=== PATIENT | male | born 1965 | race Caucasian/White ===

== ENCOUNTER 2019-10-31 21:34 | Emergency (ER) | payer BC ==
[2019-10-31] MEDS: Sodium Chloride 0.9% 1,000 ML IV SCH (22:12)
[2019-10-31] MEDS: Acetaminophen 325 MG Tab PO ONE (22:25)
--- NOTE | 2019-10-31 22:31 | EDM.PDOC ---
ED HPI GENERAL MEDICAL PROBLEM - General Chief Complaint: Neurological Problem Stated Complaint: MEDICAL [facility]IA [facility] Time Seen by Provider: 10/31/19 22:09 Source of Information: Reports: Patient, Family, RN Notes Reviewed History Limitations: Reports: No Limitations - History of Present Illness INITIAL COMMENTS - FREE TEXT/NARRATIVE: 54-year-old gentleman presents emergency department today complaint of sudden onset of headache, describes it as a "firecracker" he became very lightheaded and flushed had a syncopal event no loss of consciousness but a period of confusion for about 15 minutes no visible movement while on the ground no loss of bowel or bladder Upper Head Pain Score (Numeric/FACES): 4 - Related Data Allergies Allergy/AdvReac Type Severity Reaction Status Date / Time morphine Allergy Rash Verified 10/31/19 21:45 Home Meds: Home Meds Lisinopril/Hydrochlorothiazide [Lisinopril-Hctz 10-12.5 mg Tab] 1 tab PO DAILY 10/31/19 [History] Rosuvastatin [Crestor] 5 mg PO BEDTIME 10/31/19 [History] Past Medical History Cardiovascular History: Reports: High Cholesterol, Hypertension Social & Family History - Tobacco Use Smoking Status *Q: Never Smoker - Caffeine Use Caffeine Use: Reports: Coffee - Recreational Drug Use Recreational Drug Use: No ED ROS GENERAL - Review of Systems Review Of Systems: See Below Constitutional: Reports: No Symptoms HEENT: Reports: No Symptoms Respiratory: Reports: No Symptoms Cardiovascular: Reports: No Symptoms GI/Abdominal: Reports: No Symptoms : Reports: No Symptoms Musculoskeletal: Reports: No Symptoms Neurological: Reports: Headache - Physical Exam Exam: See Below Exam Limited By: No Limitations General Appearance: Alert, WD/WN, No Apparent Distress Eye Exam: Bilateral Eye: EOMI, Normal Fundi, Normal Inspection, PERRL Ears: Normal External Exam, Normal Canal, Hearing Grossly Normal, Normal TMs Nose: Normal Inspection, Normal Mucosa, No Blood Throat/Mouth: Normal Inspection, Normal Lips, Normal Teeth, Normal Gums, Normal Oropharynx, Normal Voice, No Airway Compromise Head Exam: Atraumatic, Normocephalic Neck: Normal Inspection, Supple, Non-Tender, Full Range of Motion Respiratory/Chest: No Respiratory Distress, Lungs Clear, Normal Breath Sounds, No Accessory Muscle Use, Chest Non-Tender Cardiovascular: Regular Rate, Rhythm, No Murmur GI/Abdominal: Soft, Non-Tender Neuro Exam (Abbreviated): Alert, Oriented, CN II-XII Intact, Normal Cognition Course - Vital Signs Last Recorded V/S: Last Vital Signs Temp 95.5 F 10/31/19 22:02 Pulse 68 10/31/19 22:02 Resp 13 10/31/19 22:02 BP 98/50 L 10/31/19 22:02 Pulse Ox 96 10/31/19 22:02 - Orders/Labs/Meds Orders: Active Orders 24 hr Category Date Time Status EKG Documentation Completion [RC] ASDIRECTED Care 10/31/19 22:23 Active Sodium Chloride 0.9% [Normal Saline] 1,000 ml Med 10/31/19 22:15 Active IV ASDIRECTED EKG 12 Lead [EK] Urgent Ther 10/31/19 22:23 Ordered Medication Orders Sodium Chloride (Normal Saline) 1,000 mls @ 999 mls/hr IV ASDIRECTED BILL Last Admin: 10/31/19 22:12 Dose: 999 mls/hr Labs: Laboratory Tests 10/31/19 10/31/19 Range/Units 22:34 22:34 WBC 8.2 (4.5-11.0) K/uL RBC 4.92 (4.30-5.90) M/uL Hgb 13.7 (12.0-15.0) g/dL Hct 42.6 (40.0-54.0) % MCV 87 (80-98) fL MCH 28 (27-31) pg MCHC 32 (32-36) % Plt Count 213 (150-400) K/uL Neut % (Auto) 78 H (36-66) % Lymph % (Auto) 14 L (24-44) % [place] % (Auto) 7 H (2-6) % Eos % (Auto) 1 L (2-4) % Baso % (Auto) 0 (0-1) % Sodium 139 L (140-148) mmol/L Potassium 4.4 (3.6-5.2) mmol/L Chloride 101 (100-108) mmol/L Carbon Dioxide 27 (21-32) mmol/L Anion Gap 15.4 H (5.0-14.0) mmol/L BUN 20 H (7-18) mg/dL Creatinine 1.3 (0.8-1.3) mg/dL Est Cr Clr Drug Dosing 76.40 mL/min Estimated GFR (MDRD) 58 L (>60) Glucose 102 (74-106) mg/dL Calcium 9.3 (8.5-10.1) mg/dL Total Bilirubin 0.3 (0.2-1.0) mg/dL AST 33 (15-37) U/L ALT 64 (12-78) U/L Alkaline Phosphatase 51 (46-116) U/L Troponin I < 0.017 (0.000-0.056) ng/mL Total Protein 7.2 (6.4-8.2) g/dL Albumin 3.7 (3.4-5.0) g/dL Globulin 3.5 (2.3-3.5) g/dL Albumin/Globulin Ratio 1.1 L (1.2-2.2) Meds: Medications Generic Name Dose Route Start Last Admin Trade Name Freq PRN Reason Stop Dose Admin Sodium Chloride 1,000 mls @ 999 mls/hr 10/31/19 22:15 10/31/19 22:12 Normal Saline IV 999 mls/hr ASDIRECTED BILL Administration Discontinued Medications Generic Name Dose Route Start Last Admin Trade Name Freq PRN Reason Stop Dose Admin Acetaminophen 650 mg 10/31/19 22:08 10/31/19 22:25 Tylenol PO 10/31/19 22:09 650 mg NOW ONE Administration Departure - Departure Time of Disposition: 23:27 Disposition: Home, Self-Care 01 Condition: Fair Clinical Impression: Near syncope Headache Qualifiers: Headache type: unspecified Headache chronicity pattern: acute headache Intractability: not intractable Qualified Code(s): R51 - Headache - Discharge Information Instructions: Near-Syncope, [id number] Referrals: PCP,None [Primary Care Provider] - Forms: ED Department Discharge Additional Instructions: Please follow-up with your primary care upon return home, call return to the emergency department worsening of symptoms Sepsis Event Note - Evaluation Sepsis Screening Result: No Definite Risk - Focused Exam Vital Signs: Vital Signs Temp Pulse Resp BP Pulse Ox 10/31/19 22:02 95.5 F 68 13 98/50 L 96 10/31/19 22:01 95.5 F 68 13 98/50 L 96 Date Exam was Performed: 10/31/19 Time Exam was Performed: 23:25 - My Orders Last 24 Hours: My Active Orders 10/31/19 22:15 Sodium Chloride 0.9% [Normal Saline] 1,000 ml IV ASDIRECTED 10/31/19 22:23 EKG Documentation Completion [RC] ASDIRECTED EKG 12 Lead [EK] Urgent - Assessment/Plan Last 24 Hours: My Active Orders 10/31/19 22:15 Sodium Chloride 0.9% [Normal Saline] 1,000 ml IV ASDIRECTED 10/31/19 22:23 EKG Documentation Completion [RC] ASDIRECTED EKG 12 Lead [EK] Urgent Plan: Assessment Acuity = acute Site and laterality = headache with near syncopal event Etiology = unknown Manifestations = none Location of injury = Home Lab values = CBC, CMP, EKG, CT scan head all within normal limits Plan He had complete relief of his headache with Tylenol provided in the ED I discussed with him further investigation which may include lumbar puncture possible transfer to another facility he declined at this time he recently had extensive work-up which includes lumbar puncture CT scan MRI of the head which were unrevealing for the similar event he had in July of this year. He is going to follow-up with his primary care upon return home This note was dictated using [employer] voice recognition software please call with any questions on syntax or grammar.
--- NOTE | 2019-10-31 22:50 | CRLCT ---
INDICATION: Headache. TECHNIQUE: Noncontrast axial images. COMPARISON: None. FINDINGS: No abnormal intracranial mass effect or midline shift. No intracranial hemorrhage. No areas of abnormal attenuation are seen within the brain. CSF spaces are age-appropriate. Visualized paranasal sinuses and mastoids are essentially clear. IMPRESSION: No CT evidence of an acute intracranial abnormality. Dictated by Wili Brandt MD @ 10/31/2019 10:47:08 PM Please note that all CT scans at this facility use dose modulation, iterative reconstruction, and/or weight-based dosing when appropriate to reduce radiation dose to as low as reasonably achievable. Dictated by: Wili Brandt MD @ 10/31/2019 22:48:08 (Electronically Signed)
== END 2019-11-01 00:14 | disposition home or self-care (01) ==
LOC: JP.ED 21:34
DX: R55 Syncope and collapse (principal); R51 Headache; I10 Essential (primary) hypertension; E78.00 Pure hypercholesterolemia, unspecified; Z88.5 Allergy status to narcotic agent; Z79.899 Other long term (current) drug therapy
CPT/HCPCS: 36415; 70450; 80053; 84484; 85025; 93005; 96360; 99285-25; A9270-GY; J7030

== ENCOUNTER 2021-05-09 13:43 | Emergency (ER) | payer BC ==
--- NOTE | 2021-05-09 14:20 | EDM.PDOC ---
ED HPI GENERAL MEDICAL PROBLEM - General Chief Complaint: Cardiovascular Problem Stated Complaint: BP AND HEART RATE CONERNS Time Seen by Provider: 05/09/21 14:00 Source of Information: Reports: Patient History Limitations: Reports: No Limitations - History of Present Illness INITIAL COMMENTS - FREE TEXT/NARRATIVE: 55-year-old male who has had a history of bradycardia in the past presents with some significant bradycardia over the past several nights as low as the 30s, and a few near syncopal episodes. He talked to his manager floral a couple days ago, he thought it may just be hydration and heat so he is to push fluids for a few days but really does not feel much better so thought he should get checked. No chest pain or shortness of breath, no peripheral edema, he does have a mild headache and fatigue and just feels off. No rashes or joint pains. He is also concerned that his blood pressure seems to be slowly rising. Onset: Gradual Duration: Day(s): (Symptoms have been ongoing for several days) Headache Pain Score (Numeric/FACES): 6 - Related Data Allergies Allergy/AdvReac Type Severity Reaction Status Date / Time morphine Allergy Rash Verified 10/31/19 21:45 Home Meds: Home Meds Lisinopril/Hydrochlorothiazide [Lisinopril-Hctz 10-12.5 mg Tab] 1 tab PO DAILY 10/31/19 [History] Rosuvastatin [Crestor] 5 mg PO BEDTIME 10/31/19 [History] Past Medical History HEENT History: Reports: Impaired Vision Cardiovascular History: Reports: High Cholesterol, Hypertension Respiratory History: Reports: Other (See Below) Other Respiratory History: 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 Neurological History: Reports: Concussion, Other (See Below) Other Neuro History: abnormal inconsistant headaches in 2018 - Infectious Disease History Infectious Disease History: Reports: Chicken Pox - Past Surgical History Musculoskeletal Surgical History: Reports: Other (See Below) Other Musculoskeletal Surgeries/Procedures:: dislocation of left shoulder reduced Social & Family History - Tobacco Use Tobacco Use Status *Q: Never Tobacco User - Caffeine Use Caffeine Use: Reports: Coffee - Recreational Drug Use Recreational Drug Use: No ED ROS GENERAL - Review of Systems Review Of Systems: See Below Constitutional: Reports: Malaise. Denies: Fever, Chills HEENT: Denies: Vision Change Respiratory: Denies: Shortness of Breath Cardiovascular: Denies: Chest Pain, Palpitations GI/Abdominal: Denies: Abdominal Pain, Nausea, Vomiting Musculoskeletal: Denies: Joint Pain Neurological: Reports: Dizziness, Headache Psychiatric: Reports: No Symptoms ED EXAM, GENERAL - Physical Exam Exam: See Below Exam Limited By: No Limitations General Appearance: Alert, No Apparent Distress Eye Exam: Bilateral Eye: Normal Inspection Head: Atraumatic Neck: Supple, Non-Tender Respiratory/Chest: Lungs Clear Cardiovascular: Regular Rate, Rhythm, Bradycardia. No: Extra Beats GI/Abdominal: Soft, Non-Tender Extremities: Normal Inspection. No: Pedal Edema, Joint Swelling, Increased Warmth Neurological: Alert, Oriented, No Motor/Sensory Deficits Psychiatric: Normal Affect, Normal Mood Skin Exam: Warm, Dry #1 Interpretation EKG Date: 05/09/21 Time: 14:00 Rhythm: NSR Rate (Beats/Min): 49 QRS: Normal ST-T: Normal Course - Vital Signs Last Recorded V/S: Last Vital Signs Temp 97.7 F 05/09/21 14:02 Pulse 46 L 05/09/21 15:37 Resp 17 05/09/21 15:37 BP 122/71 05/09/21 15:37 Pulse Ox 98 05/09/21 15:37 - Orders/Labs/Meds Orders: Active Orders 24 hr Category Date Time Status [facility] Urgent Lab 05/09/21 14:25 Received EKG 12 Lead [EK] Routine Ther 05/09/21 14:20 Ordered Labs: Laboratory Tests 05/09/21 05/09/21 05/09/21 Range/Units 14:25 14:25 14:25 WBC 4.5 (4.5-11.0) K/uL RBC 5.22 (4.30-5.90) M/uL Hgb 14.5 (12.0-15.0) g/dL Hct 44.8 (40.0-54.0) % MCV 86 (80-98) fL MCH 28 (27-31) pg MCHC 32 (32-36) % Plt Count 189 (150-400) K/uL Neut % (Auto) 58.5 (36-66) % Lymph % (Auto) 29.8 (24-44) % [place] % (Auto) 9.9 H (2-6) % Eos % (Auto) 1.6 L (2-4) % Baso % (Auto) 0.2 (0-1) % Sodium 141 (140-148) mmol/L Potassium 3.7 (3.6-5.2) mmol/L Chloride 100 (100-108) mmol/L Carbon Dioxide 30 (21-32) mmol/L Anion Gap 11.0 (5.0-14.0) mmol/L BUN 17 (7-18) mg/dL Creatinine 1.0 (0.8-1.3) mg/dL Est Cr Clr Drug Dosing 95.44 mL/min Estimated GFR (MDRD) > 60 (>60) Glucose 93 (74-106) mg/dL Calcium 9.3 (8.5-10.1) mg/dL Total Bilirubin 0.4 (0.2-1.0) mg/dL AST 30 (15-37) U/L ALT 54 (12-78) U/L Alkaline Phosphatase 48 (46-116) U/L Troponin I < 0.017 (0.000-0.056) ng/mL Total Protein 7.5 (6.4-8.2) g/dL Albumin 3.9 (3.4-5.0) g/dL Globulin 3.6 H (2.3-3.5) g/dL Albumin/Globulin Ratio 1.1 L (1.2-2.2) Lyme Disease IgG Ab Negative (Negative) Lyme Disease IgM Ab Negative (Negative) - Re-Assessments/Exams Free Text/Narrative Re-Assessment/Exam: 05/09/21 15:41 Patient remained stable, moderately bradycardic but otherwise vitals normal while in the emergency room. All of his labs returned reassuring including A negative troponin and negative Lyme's disease. EKG showed sinus bradycardia without acute changes. Copies of his labs and EKG were made, and encouraged him to continue his regular medication and recheck with cardiology when home. Departure - Departure Time of Disposition: 15:47 Disposition: Home, Self-Care 01 Clinical Impression: Near syncope, Bradycardia Instructions: Bradycardia, Adult, Near-Syncope, [id number] Referrals: PCP,None [Primary Care Provider] - Forms: ED Department Discharge Care Plan Goals: Stay hydrated, continue medications as prescribed and recheck when home. Increase activity as tolerated. Return anytime if worsening such as chest pain or shortness of breath. Sepsis Event Note (ED) - Evaluation Sepsis Screening Result: No Definite Risk - Focused Exam Vital Signs: Vital Signs Temp Pulse Resp BP Pulse Ox 05/09/21 15:37 46 L 17 122/71 98 05/09/21 15:11 55 L 19 135/84 94 L 05/09/21 14:40 50 L 19 155/86 H 95 05/09/21 14:02 97.7 F 50 L 17 146/82 H 97 05/09/21 13:59 97.7 F 50 L 17 146/82 H 97 - My Orders Last 24 Hours: My Active Orders 05/09/21 14:20 EKG 12 Lead [EK] Routine 05/09/21 14:25 [facility] Urgent - Assessment/Plan Last 24 Hours: My Active Orders 05/09/21 14:20 EKG 12 Lead [EK] Routine 05/09/21 14:25 [facility] Urgent
[2021-05-14 14:11] LABS: HGE IGG TITER Negative (Neg:<1:64); HGE IGM TITER Negative (Neg:<1:20)
== END 2021-05-09 15:48 | disposition home or self-care (01) ==
LOC: JP.ED 13:43
DX: R00.1 Bradycardia, unspecified (principal); R55 Syncope and collapse; I10 Essential (primary) hypertension; Z88.5 Allergy status to narcotic agent; Z79.899 Other long term (current) drug therapy
CPT/HCPCS: 36415; 80053; 84484; 85025; 86618; 86666; 93005; 99284-25